=== PATIENT | female | born 1955 | race Caucasian/White ===

== ENCOUNTER → 2016-11-05 14:00 | Emergency (ER) | payer OTHER ==
[~2016-11-05 14:00] MED LIST: ALEVE220 MG PO; PREV15 PO
== END | disposition home or self-care (01) ==
LOC: ER 14:00
DX: M54.2 Cervicalgia (principal); S50.811A Abrasion of right forearm, initial encounter; Z88.5 Allergy status to narcotic agent; Z88.8 Allergy status to other drugs, medicaments and biological substances; Z79.899 Other long term (current) drug therapy; V89.2XXA Person injured in unspecified motor-vehicle accident, traffic, initial encounter
CPT/HCPCS: 71020; 72040; 99284